=== PATIENT | female | born 1980 | race Caucasian/White ===

== ENCOUNTER 2018-03-22 20:35 | Emergency (ER) | payer MEDICAID ==
[~2018-03-22] VITALS: Ht 162.6 cm; Wt 62.6 kg
--- NOTE | 2018-03-22 21:30 | NUR ---
PT AMBULATORY TO ER BED 13. HERE FOR PRESSURE LIKE HEADACHE W BLURRING OF VISION. DENIES N/V. ON MONITOR. AWAITING MD ZARAGOZA.
--- NOTE | 2018-03-22 21:40 | NUR ---
LUIS MANUEL TRIANA AT BEDSIDE FOR EVAL.
[2018-03-22] MEDS ORDERED: ACETAMINOPHEN 325 MG TABLET PO ONE (22:00)
[2018-03-22] MEDS ORDERED: ACETAMINOPHEN ES 500 MG TABLET ONE (22:14)
--- NOTE | 2018-03-22 22:25 | NUR ---
PT TO RADIOLOGY FOR HEAD CT SCAN VIA [facility].
[2018-03-22] MEDS ORDERED: diphenhydrAMINE HCL 50 MG/ML VIAL IV ONE (23:00)
[2018-03-22] MEDS ORDERED: KETOROLAC TROMETHAMINE INJ 30 MG/ML VIAL IV ONE (23:00)
[2018-03-22] MEDS ORDERED: IV NS 0.9% 1,000 ML BAG IV ONE (23:00)
[2018-03-22] MEDS ORDERED: METOCLOPRAMIDE HCL 10 MG/2 ML VIAL IV ONE (23:00)
[2018-03-22] MEDS ORDERED: METOCLOPRAMIDE HCL 10 MG/2 ML VIAL ONE (23:10)
[2018-03-22] MEDS ORDERED: KETOROLAC TROMETHAMINE INJ 30 MG/ML VIAL ONE (23:10)
[2018-03-22] MEDS ORDERED: diphenhydrAMINE HCL 50 MG/ML VIAL ONE (23:10)
--- NOTE | 2018-03-22 23:50 | NUR ---
ASSUMED CARE OF PT AT THIS TIME. PT RESTING IN BED WITH NO S/S OF DISTRESS NOTED
--- NOTE | 2018-03-23 01:01 | NUR ---
Patient discharged to home in stable condition. Written and verbal after care instructions given. Patient verbalizes understanding of instruction.IV removed. Catheter intact and site benign. Pressure and 4x4 applied to site. No bleeding noted.
[2018-03-23 01:06] VITALS: BP 132/88
== END 2018-03-23 01:10 | disposition home or self-care (01) ==
LOC: ER 20:37
DX: R51 Headache (principal); R42 Dizziness and giddiness
CPT/HCPCS: 70450; 84703; 96361; 96374; 96375; 99285; A4606; J1200; J1885; J2765; J7030; Z7610